=== PATIENT | female | born 1985 | race Caucasian/White ===

== ENCOUNTER 2017-06-17 13:25 | Emergency (ER) | payer BC ==
[2017-06-17] MEDS ORDERED: Lidocaine 1% 20 ML MDV INJECT ONE (13:40)
[2017-06-17] MEDS ORDERED: Diphtheria,Pertussis(Acell),Tetanus Vaccine 0.5 ML Syringe IM ONE (13:40)
--- NOTE | 2017-06-17 13:41 | EDM.PDOC ---
ED HPI GENERAL MEDICAL PROBLEM - General Chief Complaint: Laceration Stated Complaint: CUT LT MIDDLE FINGER Time Seen by Provider: 06/17/17 13:39 Source of Information: Reports: Patient History Limitations: Reports: No Limitations - History of Present Illness INITIAL COMMENTS - FREE TEXT/NARRATIVE: HISTORY AND PHYSICAL: [] 32-year-old female who was turning chickens and cut her middle finger on her left hand History of Present Illness: []Just prior to coming in to the ED Does not recall her last tetanus vaccine Review of Systems: As per history of present illness and below otherwise all systems reviewed and negative. Past medical history: As per history of present illness and as reviewed below otherwise noncontributory. Surgical history: As per history of present illness and as reviewed below otherwise noncontributory. Social history: No reported history of drug or alcohol abuse. Family history: As per history of present illness and as reviewed below otherwise noncontributory. Physical exam: Alert and oriented female. Answering questions in full sentences without any shortness of breath she is nontoxic in appearance. HEENT: Atraumatic, normocehpalic, pupils reactive, negative for conjunctival pallor or scleral icterus, mucous membranes moist, throat clear, neck supple, nontender, trachea midline. Lungs: Clear to auscultation, breath sounds equal bilaterally, chest non tender. Heart: S1S2, regular, negative for clicks, rubs, or JVD. Abdomen: Soft, nondistended, nontender. Negative for masses or hepatossplenmegaly. Negative for costovertebral tenderness. Pelvis: Stable nontender. Genitourinary: Deferred. Rectal: Deferred Extremities:1.25 cm laceration across her MIP joint palmar surface middle finger finger left hand, negative for cords or calf pain. Neurovascular unremarkable. Neuro: Awake, alert, oriented. Cranial nerves II through XII unremarkable. Cerebellum unremarkable. Motor and sensory unremarkable throughout. Exam nonfocal. Diagnostics: [] Therapeutics: []Sutures Impression: [Laceration with repair Plan: []Discharged to home Sutures out in 7 days Tylenol for discomfort after tight tetanus shot Follow-up with your PCP as needed Definitive disposition and diagnosis as appropriate pending reevaluation and review of above. Left 3-Middle finger Pain Score (Numeric/FACES): 5 - Related Data Allergies Allergy/AdvReac Type Severity Reaction Status Date / Time No Known Allergies Allergy Verified 06/17/17 13:39 Home Meds: Home Meds . [No Known Home Meds] 06/17/17 [History] ED ROS GENERAL - Review of Systems Review Of Systems: ROS reveals no pertinent complaints other than HPI. ED EXAM, SKIN/RASH Exam: See Below ED SKIN PROCEDURES - Laceration/Wound Repair Left Medial Finger Lac/Wound length In cm: 1.2 Appearance: Muscle, Linear, Clean Distal NVT: Neuro & Vascular Intact, No Tendon Injury Anesthetic Type: Local Local Anesthesia - Lidocaine (Xylocaine): 1% Plain Local Anesthetic Volume: 3cc Skin Prep: Saline Exploration/Debridement/Repair: Wound Explored, Explored to Base Closed with: Sutures Suture Size: 4-0 # of Sutures: 3 Suture Type: Nylon, Interrupted, Simple Drain Placement: No Sterile Dressing Applied: Nurse Tetanus Status Addressed: Yes Complications: No Course - Vital Signs Last Recorded V/S: Last Vital Signs Temp 36.4 C 06/17/17 13:34 Pulse 81 06/17/17 13:34 Resp 18 06/17/17 13:34 BP 124/77 06/17/17 13:34 Pulse Ox 97 06/17/17 13:34 - Orders/Labs/Meds Orders: Active Orders 24 hr Category Date Time Status Vaccines to be Administered [RC] PER UNIT ROUTINE Care 06/17/17 13:41 Active Bacitracin [Bacitracin Oint 1 GM] Med 06/17/17 14:00 Once 1 dose TOP ONETIME ONE Medication Orders Bacitracin (Bacitracin Oint 1 Gm) 1 dose TOP ONETIME ONE Stop: 06/17/17 14:01 Meds: Medications Generic Name Dose Route Start Last Admin Trade Name Freq PRN Reason Stop Dose Admin Bacitracin 1 dose 06/17/17 14:00 Bacitracin Oint 1 Gm TOP 06/17/17 14:01 ONETIME ONE Discontinued Medications Generic Name Dose Route Start Last Admin Trade Name Freq PRN Reason Stop Dose Admin Diphtheria/Tetanus/Acell Pertussis 0.5 ml 06/17/17 13:40 Adacel IM 06/17/17 13:41 .ONCE ONE Lidocaine HCl 20 ml 06/17/17 13:40 06/17/17 14:00 Xylocaine 1% INJECT 06/17/17 13:41 20 ml ONETIME ONE Administration Departure - Departure Time of Disposition: 14:03 Disposition: Home, Self-Care 01 Condition: Good Clinical Impression: Laceration - Discharge Information Instructions: Laceration Care, Adult, [id number], Stitches, Estero, or Adhesive Wound Closure, [id number] Referrals: PCP,None [Primary Care Provider] - Forms: ED Department Discharge Additional Instructions: The following information is given to patients seen in the emergency department who are being discharged to home. This information is to outline your options for follow-up care. We provide all patients seen in our emergency department with a follow-up referral. The need for follow-up, as well as the timing and circumstances, are variable depending upon the specifics of your emergency department visit. If you don't have a primary care physician on staff, we will provide you with a referral. We always advise you to contact your personal physician following an emergency department visit to inform them of the circumstance of the visit and for follow-up with them and/or the need for any referrals to a consulting specialist. The emergency department will also refer you to a specialist when appropriate. This referral assures that you have the opportunity for followup care with a specialist. All of these measure are taken in an effort to provide you with optimal care, which includes your followup. Under all circumstances we always encourage you to contact your private physician who remains a resource for coordinating your care. When calling for followup care, please make the office aware that this follow-up is from your recent emergency room visit. If for any reason you are refused follow-up, please contact the [facility] emergency department at and asked to speak to the emergency department charge nurse. No tendon injury was noted today on your examination SHe had full range of motion and sensation Return if you have any worsening of your condition Sutures out in 7 days Keep area clean and dry antibiotic ointment has been placed on along the suture line Tetanus vaccine was given today - My Orders Last 24 Hours: My Active Orders 06/17/17 13:41 Vaccines to be Administered [RC] PER UNIT ROUTINE 06/17/17 14:00 Bacitracin [Bacitracin Oint 1 GM] 1 dose TOP ONETIME ONE - Assessment/Plan Last 24 Hours: My Active Orders 06/17/17 13:41 Vaccines to be Administered [RC] PER UNIT ROUTINE 06/17/17 14:00 Bacitracin [Bacitracin Oint 1 GM] 1 dose TOP ONETIME ONE
[2017-06-17] MEDS ORDERED: Bacitracin Oint 1 GM U/D Packet TOP ONE (14:00)
[2017-06-17 14:31] VITALS: BP 108/72
== END 2017-06-17 14:30 | disposition home or self-care (01) ==
LOC: MW.ED 13:25 → MERGE 13:25 → MW.ED 14:30
DX: S61.213A Laceration without foreign body of left middle finger without damage to nail, initial encounter (principal); Z23 Encounter for immunization; W22.8XXA Striking against or struck by other objects, initial encounter
CPT/HCPCS: 12001; 90471; 90715; 99282; 99282-25

== ENCOUNTER 2017-10-13 07:48 | Emergency (ER) | payer BC ==
--- NOTE | 2017-10-13 08:18 | EDM.PDOC ---
ED HPI GENERAL MEDICAL PROBLEM - General Chief Complaint: Cardiovascular Problem Stated Complaint: IRREGULAR HEARTBEAT Time Seen by Provider: 10/13/17 08:16 - History of Present Illness INITIAL COMMENTS - FREE TEXT/NARRATIVE: HISTORY AND PHYSICAL: History of present illness: Patient 32-year-old female presents with concern palpitations this been off and on for several years she states she is quite anxious she did have the loss of her mother that has been a stressful situation for some time now. She denies shortness of breath chest pain or other concern Review of systems: As per history of present illness and below otherwise all systems reviewed and negative. Past medical history: As per history of present illness and as reviewed below otherwise noncontributory. Surgical history: As per history of present illness and as reviewed below otherwise noncontributory. Social history: No reported history of drug or alcohol abuse. Family history: As per history of present illness and as reviewed below otherwise noncontributory. Physical exam: HEENT: Atraumatic, normocephalic, pupils reactive, negative for conjunctival pallor or scleral icterus, mucous membranes moist, throat clear, neck supple, nontender, trachea midline. Lungs: Clear to auscultation, breath sounds equal bilaterally, chest nontender. Heart: S1S2, regular, negative for clicks, rubs, or JVD. Abdomen: Soft, nondistended, nontender. Negative for masses or hepatosplenomegaly. Negative for costovertebral tenderness. Pelvis: Stable nontender. Genitourinary: Deferred. Rectal: Deferred. Extremities: Atraumatic, negative for cords or calf pain. Neurovascular unremarkable. Neuro: Awake, alert, oriented. Cranial nerves II through XII unremarkable. Cerebellum unremarkable. Motor and sensory unremarkable throughout. Exam nonfocal. Diagnostics: CBC CMP troponin chest x-ray EKG Therapeutics: None Impression: 1 palpitations Definitive disposition and diagnosis as appropriate pending reevaluation and review of above. - Related Data Allergies Allergy/AdvReac Type Severity Reaction Status Date / Time No Known Allergies Allergy Verified 10/13/17 07:58 Home Meds: Home Meds . [No Known Home Meds] 06/17/17 [History] Past Medical History - Past Health History Medical/Surgical History: Denies Medical/Surgical History - Infectious Disease History Infectious Disease History: Reports: Chicken Pox Social & Family History - Family History Family Medical History: Noncontributory - Tobacco Use Smoking Status *Q: Never Smoker Used Tobacco, but Quit: Yes Month Tobacco Last Used: april - Caffeine Use Caffeine Use: Reports: Coffee - Recreational Drug Use Recreational Drug Use: No ED ROS GENERAL - Review of Systems Review Of Systems: ROS reveals no pertinent complaints other than HPI. ED EXAM, GENERAL - Physical Exam Exam: See Below (See dictation) Course - Vital Signs Last Recorded V/S: Last Vital Signs Temp 36.9 C 10/13/17 07:54 Pulse 109 H 10/13/17 07:54 Resp 22 H 10/13/17 07:54 BP 144/90 H 10/13/17 07:54 Pulse Ox 94 L 10/13/17 07:54 - Orders/Labs/Meds Orders: Active Orders 24 hr Category Date Time Status EKG Documentation Completion [RC] STAT Care 10/13/17 07:52 Active Chest 1V Frontal [CR] Stat Exams 10/13/17 07:52 Ordered COMPREHENSIVE METABOLIC PN,CMP [CHEM] Stat Lab 10/13/17 07:55 Received HCG QUALITATIVE,URINE [URCHEM] Stat Lab 10/13/17 08:07 Received INR,PT,PROTHROMBIN TIME [COAG] Stat Lab 10/13/17 07:55 Received TROPONIN I [CHEM] Stat Lab 10/13/17 07:55 Received UA W/MICROSCOPIC [URIN] Stat Lab 10/13/17 07:52 Ordered Labs: Laboratory Tests 10/13/17 Range/Units 07:55 WBC 7.86 (4.0-11.0) K/uL RBC 4.87 (4.30-5.90) M/uL Hgb 15.4 (12.0-16.0) g/dL Hct 43.4 (36.0-46.0) % MCV 89.1 (80.0-98.0) fL MCH 31.6 (27.0-32.0) pg MCHC 35.5 (31.0-37.0) g/dL RDW Std Deviation 39.4 (28.0-62.0) fl RDW Coeff of Adonis 12 (11.0-15.0) % Plt Count 220 (150-400) K/uL MPV 11.30 (7.40-12.00) fL Neut % (Auto) 61.0 (48.0-80.0) % Lymph % (Auto) 28.9 (16.0-40.0) % Walsh % (Auto) 8.8 (0.0-15.0) % Eos % (Auto) 0.9 (0.0-7.0) % Baso % (Auto) 0.4 (0.0-1.5) % Neut # (Auto) 4.8 (1.4-5.7) K/uL Lymph # (Auto) 2.3 (0.6-2.4) K/uL Walsh # (Auto) 0.7 (0.0-0.8) K/uL Eos # (Auto) 0.1 (0.0-0.7) K/uL Baso # (Auto) 0.0 (0.0-0.1) K/uL Nucleated RBC % 0.0 /100WBC Nucleated RBCs # 0 K/uL Departure - Departure Time of Disposition: 08:17 Disposition: Home, Self-Care 01 Condition: Good Clinical Impression: Palpitations Additional Instructions: The following information is given to patients seen in the emergency department who are being discharged to home. This information is to outline your options for follow-up care. We provide all patients seen in our emergency department with a follow-up referral. The need for follow-up, as well as the timing and circumstances, are variable depending upon the specifics of your emergency department visit. If you don't have a primary care physician on staff, we will provide you with a referral. We always advise you to contact your personal physician following an emergency department visit to inform them of the circumstance of the visit and for follow-up with them and/or the need for any referrals to a consulting specialist. The emergency department will also refer you to a specialist when appropriate. This referral assures that you have the opportunity for followup care with a specialist. All of these measure are taken in an effort to provide you with optimal care, which includes your followup. Under all circumstances we always encourage you to contact your private physician who remains a resource for coordinating your care. When calling for followup care, please make the office aware that this follow-up is from your recent emergency room visit. If for any reason you are refused follow-up, please contact the [facility] emergency department at and asked to speak to the emergency department charge nurse. Avoid caffeine antihistamines decongestants as discussed follow-up primary medical doctor call to schedule routine appointment return as needed as discussed - My Orders Last 24 Hours: My Active Orders 10/13/17 07:52 EKG Documentation Completion [RC] STAT Chest 1V Frontal [CR] Stat UA W/MICROSCOPIC [URIN] Stat 10/13/17 07:55 COMPREHENSIVE METABOLIC PN,CMP [CHEM] Stat INR,PT,PROTHROMBIN TIME [COAG] Stat TROPONIN I [CHEM] Stat 10/13/17 08:07 HCG QUALITATIVE,URINE [URCHEM] Stat - Assessment/Plan Last 24 Hours: My Active Orders 10/13/17 07:52 EKG Documentation Completion [RC] STAT Chest 1V Frontal [CR] Stat UA W/MICROSCOPIC [URIN] Stat 10/13/17 07:55 COMPREHENSIVE METABOLIC PN,CMP [CHEM] Stat INR,PT,PROTHROMBIN TIME [COAG] Stat TROPONIN I [CHEM] Stat 10/13/17 08:07 HCG QUALITATIVE,URINE [URCHEM] Stat
[2017-10-13 08:38] LABS: CHLORIDE,CL 107 mmol/L (98-110); SODIUM,NA 140 mmol/L (136-146)
[2017-10-13 09:08] VITALS: BP 112/69
--- NOTE | 2017-10-13 16:25 | CR ---
EXAM DATE: 10/13/17 PATIENT'S AGE: 32 Patient: TEODORA JAY Facility: [place], [place] Site . Site : 1985 Study: XRay Chest [id number]/[id number] 8:25:06 AM Ordering Physician: Doctor Dominguez Final Report: INDICATION: Cardiac palpitations COMPARISON: none TECHNIQUE: Portable AP erect chest performed at 8:12 a.m. FINDINGS: The lungs are clear. There is no evidence pneumothorax or pneumomediastinum. The heart, mediastinum and pulmonary vessels are of normal size. There is no evidence of pleural fluid. IMPRESSION: Negative chest. Dictated by Alexis Moreau MD @ Oct 13 2017 8:27AM (Electronic Signature) Report Signed by Proxy. PAULINA
== END 2017-10-13 08:57 | disposition home or self-care (01) ==
LOC: MW.ED 07:48
DX: R00.2 Palpitations (principal)
CPT/HCPCS: 36415; 71045; 71045-26; 80053; 81001; 81025; 84484; 85025; 85610; 93005; 99284; 99285-25

== ENCOUNTER 2019-07-02 19:10 | Emergency (ER) | payer BC ==
--- NOTE | 2019-07-02 19:49 | EDM.PDOC ---
ED HPI GENERAL MEDICAL PROBLEM - General Chief Complaint: Upper Extremity Injury/Pain Stated Complaint: BROKEN ARM Time Seen by Provider: 07/02/19 19:34 Source of Information: Reports: Patient History Limitations: Reports: No Limitations - History of Present Illness INITIAL COMMENTS - FREE TEXT/NARRATIVE: HISTORY AND PHYSICAL: History of present illness: Patient is a 34-year-old female presents to the ED today with concern of right arm injury that occurred a few hours prior to arrival to the ED. 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 Patient states the cow reared up and her forearm went up and hit the top metal bar. Patient states since then she's had pain with moving her thumb/wrist but she continued to use the hand in order to finish working the cattle. Patient denies any prior injury to the arm or any other symptoms or concerns at this time. Patient denies fever, chills, chest pain, shortness of breath, or cough. Denies headache, neck stiff ness, change in vision, syncope, or near syncope. Denies nausea, vomiting, abdominal pain, diarrhea, constipation, or dysuria. Has not noted any blood in urine or stool. Patient has been eating and drinking appropriately. Review of systems: As per history of present illness and below otherwise all systems reviewed and negative. Past medical history: As per history of present illness and as reviewed below otherwise noncontributory. Surgical history: As per history of present illness and as reviewed below otherwise noncontributory. Social history: See social history for further information Family history: As per history of present illness and as reviewed below otherwise noncontributory. Physical exam: General: Patient is alert, oriented, and in no acute distress. Patient sitting comfortably on exam table. HEENT: Atraumatic, normocephalic, pupils equal and reactive bilaterally, negative for conjunctival pallor or scleral icterus, mucous membranes moist, TMs normal bilaterally, throat clear, neck supple, nontender, trachea midline. No drooling or trismus noted. No meningeal signs. No hot potato voice noted. Lungs: Clear to auscultation, breath sounds equal bilaterally, chest nontender. Heart: S1S2, regular rate and rhythm without overt murmur Abdomen: Soft, nondistended, nontender. Negative for masses or hepatosplenomegaly. Negative for costovertebral tenderness. Pelvis: Stable nontender. Genitourinary: Deferred. Rectal: Deferred. Skin: Intact, warm, dry. No lesions or rashes noted. Extremities: Negative for cords or calf pain. Neurovascular unremarkable. There is a raised area of edema at the right distal radial shaft area with pain with palpation. Patient has full range of motion of all digits except for limited range of motion of the right thumb due to pain. Patient has limited range of motion of the right wrist due to pain but does have full range of motion of the right elbow and shoulder. Radial pulse is grossly intact of the right upper extremity with capillary refill less than 2 seconds. Negative snuffbox tenderness. Neuro: Awake, alert, oriented. Cranial nerves II through XII unremarkable. Cerebellum unremarkable. Motor and sensory unremarkable throughout. Exam nonfocal. Notes: Discussed the importance for follow-up with a primary care provider or ortho. Voices understanding and is agreeable to plan of care. Denies any further questions or concerns at this time. Diagnostics: hand XR, wrist XR, forearm XR Therapeutics: wrist splint (placed by nursing staff) Prescription: None Impression: Forearm injury, right Plan: 1. You can alternate ibuprofen and Tylenol as directed for pain and discomfort. 2. Follow-up with your primary care provider or orthopedic provider as discussed. Return to the ED as needed and as discussed. Definitive disposition and diagnosis as appropriate pending reevaluation and review of above. right arm Pain Score (Numeric/FACES): 5 - Related Data Allergies Allergy/AdvReac Type Severity Reaction Status Date / Time No Known Allergies Allergy Verified 07/02/19 19:29 Home Meds: Home Meds . [No Known Home Meds] 06/17/17 [History] Past Medical History - Past Health History Medical/Surgical History: Denies Medical/Surgical History - Infectious Disease History Infectious Disease History: Reports: Chicken Pox Social & Family History - Family History Family Medical History: Noncontributory - Caffeine Use Caffeine Use: Reports: Coffee Review of Systems - Review of Systems Review Of Systems: ROS reveals no pertinent complaints other than HPI. ED EXAM, GENERAL - Physical Exam Exam: See Below (See dictation) Course - Vital Signs Last Recorded V/S: Last Vital Signs Temp 96.9 F 07/02/19 19:26 Pulse 104 H 10/14/19 19:26 Resp 16 07/02/19 19:26 BP 130/82 07/02/19 19:26 Pulse Ox 98 07/02/19 19:26 Departure - Departure Time of Disposition: 20:32 Disposition: Home, Self-Care 01 Clinical Impression: Forearm injury Qualifiers: Encounter type: initial encounter Laterality: right Qualified Code(s): S59.911A - Unspecified injury of right forearm, initial encounter - Discharge Information Referrals: PCP,None [Primary Care Provider] - Forms: ED Department Discharge Additional Instructions: The following information is given to patients seen in the emergency department who are being discharged to home. This information is to outline your options for follow-up care. We provide all patients seen in our emergency department with a follow-up referral. The need for follow-up, as well as the timing and circumstances, are variable depending upon the specifics of your emergency department visit. If you don't have a primary care physician on staff, we will provide you with a referral. We always advise you to contact your personal physician following an emergency department visit to inform them of the circumstance of the visit and for follow-up with them and/or the need for any referrals to a consulting specialist. The emergency department will also refer you to a specialist when appropriate. This referral assures that you have the opportunity for follow-up care with a specialist. All of these measure are taken in an effort to provide you with optimal care, which includes your follow-up. Under all circumstances we always encourage you to contact your private physician who remains a resource for coordinating your care. When calling for follow-up care, please make the office aware that this follow-up is from your recent emergency room visit. If for any reason you are refused follow-up, please contact the [facility] Emergency Department at and asked to speak to the emergency department charge nurse. [facility] [address] [place] [id number] [facility] [address] [place] [id number] [facility] - [facility] Professional Building [address] [facility], [address] [place] [address] Dr De Anda, Orthopedist [facility] [address] [place] [address] Dr Olivares - Dr Kelly - Dr Angel [facility] at [facility] [address] [place] [address] [facility] [address] [place] [address] 1. You can alternate ibuprofen and Tylenol as directed for pain and discomfort. 2. Follow-up with your primary care provider or orthopedic provider as discussed. Return to the ED as needed and as discussed.
--- NOTE | 2019-07-02 20:22 | CR ---
Indication: Crush injury, arm pinned between gout and off fence. Technique: Three views of the right wrist were obtained. Comparison: None Findings: No acute fracture or subluxation is identified. The joint spaces are well maintained. Impression: No acute fracture Dictated by Bridget Hanna MD @ Jul 02 2019 8:20PM Signed by Dr. Bridget Hanna @ Jul 02 2019 8:21PM
--- NOTE | 2019-07-02 20:22 | CR ---
Indication: Crush injury. Technique: Two views of the right forearm were obtained. Comparison: The Findings: No acute fracture or subluxation is identified. The joint spaces are well maintained. Impression: No acute fracture Dictated by Bridget Hanna MD @ Jul 02 2019 8:21PM Signed by Dr. Bridget Hanna @ Jul 02 2019 8:21PM
--- NOTE | 2019-07-02 20:24 | CR ---
Indication: Crush injury. Technique: Three views of the right hand were obtained. Comparison: None Findings: No acute fracture or subluxation is identified. The joint spaces are well maintained. Impression: No acute fracture. Dictated by Bridget Hanna MD @ Jul 02 2019 8:22PM Signed by Dr. Bridget Hanna @ Jul 02 2019 8:23PM
[2019-07-02 20:26] VITALS: BP 130/82; PULSE 104
== END 2019-07-02 20:53 | disposition home or self-care (01) ==
LOC: MW.ED 19:10
DX: S59.911A Unspecified injury of right forearm, initial encounter (principal); W22.09XA Striking against other stationary object, initial encounter; Y93.89 Activity, other specified
CPT/HCPCS: 73090-26-RT; 73090-RT; 73110-26-RT; 73110-RT; 73130-26-RT; 73130-RT; 99283-25

== ENCOUNTER 2023-01-18 08:24 | Day surgery (SDC) | payer BC, OTHER ==
[~2023-01-18 08:24] MED LIST: Albuterol 0.083% 2.5 MG/3 ML Neb Soln NEB PRN; Dexamethasone 4 MG/ML 5 ML MDV ONE; HYDROmorphone 1 MG/ML Syringe IVPUSH PRN; Ketorolac 30 MG/ML SDV ONE; Lactated Ringers 1,000 ML IV SCH; Lidocaine 2% 11 ML Jelly Filled Syringe ONE; Lidocaine 2% 5 ML SDV ONE; Metoclopramide 10 MG/2 ML SDV IVPUSH PRN; Morphine 2 MG/ML SYRINGE IVPUSH PRN; Naloxone 0.4 MG/ML SDV IVPUSH PRN; Ondansetron 4 MG/2 ML SDV IVPUSH PRN; Ondansetron 4 MG/2 ML SDV ONE; Propofol 200 MG/20 ML SDV ONE; droPERidol 5 MG/2 ML SDV IVPUSH PRN; fentaNYL 100 MCG/2 ML SDV ONE; fentaNYL 50 MCG/ML SDV IVPUSH PRN
[2023-01-18] MEDS ORDERED: Scopolamine 1.5 MG Transdermal Patch TOP ONE (08:30)
[2023-01-18 09:17] LABS: CARBON DIOXIDE,CO2 24.9 mmol/L (21.0-32.0); POTASSIUM,K 3.9 mmol/L (3.5-5.1)
[2023-01-18 13:05] VITALS: BP 110/68; PULSE 65
== END 2023-01-18 11:10 | disposition home or self-care (01) ==
LOC: MW.SDS 08:24
PROVIDERS: ATTEND Obstetrics & Gynecology
DX: N92.0 Excessive and frequent menstruation with regular cycle (principal); N85.8 Other specified noninflammatory disorders of uterus; N94.6 Dysmenorrhea, unspecified; F17.210 Nicotine dependence, cigarettes, uncomplicated; E66.9 Obesity, unspecified; Z98.51 Tubal ligation status; Z79.899 Other long term (current) drug therapy; Z68.34 Body mass index [BMI] 34.0-34.9, adult
CPT/HCPCS: 00952; 36415; 80053; 81025; 85027; A9270-GY; J0131; J1100; J1885; J2405; J2704; J3010; J3490; J7120